=== PATIENT | female | born 1975 ===

== ENCOUNTER 2021-07-28 16:43 | Emergency (ER) | payer OTHER ==
[~2021-07-28] VITALS: Ht 162.6 cm; Wt 166.5 kg
[~2021-07-28 16:43] MED LIST: BICILLIN C1.2 MMU/2 IM; CIPRO500 MG PO; GILTUSS LIQUID237 M1 PO; INTESTINEX1 CA1 PO; PREDNISONE5 MG/DOSE- PO; TRAMADOL HCL50 MG PO; TUSSIONEX PENNKI5 ML PO
[2021-07-28] MEDS ORDERED: DICLOFENAC SODI75 MG PO (21:46)
[2021-07-28] MEDS ORDERED: LEVOFLOXACIN750 MG PO (21:46)
== END 2021-07-28 22:28 | disposition home or self-care (01) ==
LOC: ER 16:43
DX: L03.115 Cellulitis of right lower limb (principal); E11.9 Type 2 diabetes mellitus without complications; I10 Essential (primary) hypertension